=== PATIENT | female | born 1980 | race Caucasian/White ===

== ENCOUNTER → 2020-02-11 | Outpatient (CLI) | payer OTHER ==
[2020-02-11 09:43] LABS: Basophils % (A) 1 %; Eosinophils # (A) 0.1 k/uL (0-0.7); Eosinophils % (A) 2 %; HCT 43.3 % (34.0-46.0); HGB 14.7 gm/dL (11.4-16.0); Lymphocytes # (A) 2.2 k/uL (1.0-4.8); Lymphocytes % (A) 33 %; MCH 32.5 pg (25.0-35.0); MCV 95.5 fL (80.0-100.0); Mean Platelet Volume 6.4; Monocytes # (A) 0.4 k/uL (0-1.0); Monocytes % (A) 5 %; Neutrophils # (A) 3.9 k/uL (1.3-7.7); Neutrophils % (A) 58 %; Platelet Count 263 k/uL (150-450); RBC 4.53 m/uL (3.80-5.40); RDW 12.1 % (11.5-15.5); WBC 6.7 k/uL (3.8-10.6)
[2020-02-11 11:37] LABS: Erythrocyte Sedimentation Rate 6 mm/hr (0-20)
[2020-02-11 16:35] LABS: Anion Gap 5.7 mmol/L (4.00-12.00); BUN/Creat Ratio 15.56 Ratio (12.00-20.00); C Reactive Protein 0.4 mg/dL (0.0-0.8); Calcium 9.6 mg/dL (8.7-10.3); Carbon Dioxide 22.3 mmol/L (21.6-31.8); Non-African American GFR(CKD) 81.1 (60.0-200.0); Potassium 3.9 mmol/L (3.5-5.5)
== END | disposition home or self-care (01) ==
LOC: LABWHC1 08:54
PROVIDERS: ATTEND Orthopaedic Surgery
DX: M25.50 Pain in unspecified joint (principal)
CPT/HCPCS: 36415; 80048; 85025; 85652; 86140

== ENCOUNTER → 2020-02-21 | Day surgery (SDC) | payer OTHER ==
[~2020-02-21] MED LIST: HYDROcodone/APAP 5-325MG 1 EACH TAB PO PRN; PREMYELOGRAM MEDICATION REVIEW 1 EACH MISC PO PRN; diazePAM 5 MG TAB PO STA
[2020-02-21 09:26] VITALS: TEMP 97.9
[2020-02-21 09:46] VITALS: RESP 16
--- NOTE | 2020-02-21 11:24 | FL ---
PROCEDURE: Fluoroscopic guided lumbar myelogram. DATE: 02/21/2020 CLINICAL HISTORY: 39-year-old female low back pain right leg pain, M54.5. COMPLICATIONS: None Fluoroscopy time: 1 minute 54 seconds Total images: 10 SEDATION: 10 mg Valium administered by radiology nursing. The patient and the patient's vital signs were monit ored by qualified independent radiology personnel. TECHNIQUE: The procedure and potential risks were explained to patient and an informed consent was obtained with teach back. Site and side was verified. A time out was performed. The patient was placed prone on the fluoroscopy table and the L3-L4 level was localized and the skin was marked and was prepped and draped in the usual sterile fashion. Lidocaine was used for local anesthesia. Utilizing fluoroscopic guidance a 22-gauge 5 inch spinal nee dle was placed through the skin and into the subarachnoid space. Once clear CSF was visualized, 14 mL Isovue-M 200 was injected into the thecal sac. The patient tolerated the procedure well and was sent to CT in satisfactory condition. The estimated blood loss was minimal. The patient's condition was unchanged following the procedure. The fluoroscopic images demonstrate L3-L4 posterior and interbody fusion as well as L4-S1 interbody f usion. There is additional right-sided SI joint surgical arthrodesis. IMPRESSION: Successful lumbar myelogram injection for CT.
--- NOTE | 2020-02-21 11:48 | CT ---
EXAMINATION TYPE: CT lumbar myelogram DATE OF EXAM: 02/21/2020 COMPARISON: CT 08/25/2019 HISTORY: 39-year-old female M54.5, low back and right leg pain, Post myelogram TECHNIQUE: Contiguous axial scanning of the lumbar spine performed after intrathecal contrast adminis tration. Please refer to myelogram injection of the same day for further details. Coronal/sagittal re constructions performed. CT DLP: 801.1 mGycm Automated exposure control for dose reduction was used. FINDINGS: L3-L4 posterior and interbody fusion. Additional interbody fusion hardware from L4 through S1 levels. Limited lateral osseous fusion on the right and L3-L4 possibly relating to a large laminotomy defect , axial image 38 and coronal image 27. However, there is mature lateral osseous fusion changes There is mature lateral osseous fusion change in both sides. The distal aspect of the left L3 and left L4 transpedicular screws just grazes the superior endplate cortex at their respective levels. Right-sided SI joint fusion. The second right SI joint pin just encroaches beyond the S1-S2 neurofora monica cortex, coronal image 32 and axial image 65. There is no spinal canal stenosis. Conus medullaris is at L1-L2. Vertebral body height. Alignment is maintained. On the right at L3-L4, there is slight thickening and clumping of the nerve roots within the right la teral recess, axial image 36, sagittal image 28, coronal image 25. Mild bony neuroforaminal narrowing on the right at L5-S1. Otherwise, no significant neuroforaminal st enosis is seen. IMPRESSION: 1. L3-L4 POSTERIOR AND INTERBODY FUSION. ADDITIONAL INTERBODY FUSION FROM L4 THROUGH S1 LEVELS. 2. LIMITED DEGREE OF LATERAL OSSEOUS FUSION ON THE RIGHT AT L3-L4 POSSIBLY RELATING TO A LARGE LAMINO QUINCY DEFECT. MATURE LATERAL OSSEOUS FUSION AT THE REMAINING LEVELS. 3. IN ADDITION, THERE IS THE APPEARANCE OF SLIGHT THICKENING AND CLUMPING OF THE NERVE ROOTS WITHIN T HE RIGHT LATERAL RECESS AT L3-L4. SOME GRANULATION TISSUE OR ARACHNOIDITIS DIFFICULT TO EXCLUDE. (AXI AL IMAGE 36, SAGITTAL IMAGE 28, CORONAL IMAGE 25). 4. NO SPINAL CANAL STENOSIS. 5. MILD BONY NEUROFORAMINAL NARROWING ON THE RIGHT AT L5-S1. 6. RIGHT SI JOINT PINNING. THE TIP OF THE SECOND PIN JUST VIOLATES THE LATERAL CORTEX OF THE RIGHT S1 -S2 NEURAL FORAMEN (CORONAL IMAGE 32 AND AXIAL IMAGE 65).
[2020-02-21 13:36] VITALS: BP 131/79; PULSE 78
== END ==
LOC: RADPROMAIN 07:51
PROVIDERS: ATTEND Orthopaedic Surgery
DX: M48.07 Spinal stenosis, lumbosacral region (principal); M54.10 Radiculopathy, site unspecified; R90.89 Other abnormal findings on diagnostic imaging of central nervous system; F41.9 Anxiety disorder, unspecified; F32.9 Major depressive disorder, single episode, unspecified; Z98.1 Arthrodesis status; Z96.89 Presence of other specified functional implants; Z98.890 Other specified postprocedural states; Z79.3 Long term (current) use of hormonal contraceptives; Z79.891 Long term (current) use of opiate analgesic; Z79.899 Other long term (current) drug therapy; Z88.1 Allergy status to other antibiotic agents
CPT/HCPCS: 62304; 72132; Q9966